=== PATIENT | male | born 1955 | race Caucasian/White ===

== ENCOUNTER 2021-08-24 16:22 | Emergency (ER) | payer MEDICARE ==
[~2021-08-24 16:22] MED LIST: CARAFATE1 GM PO; NORVASC2.5 MG PO; OMEPRAZOLE DR40 MG PO; PERCOCET 5/325M1 TAB PO; VALIUM5 MG PO
[2021-08-25] MEDS ORDERED: TAMSULOSIN HCL0.4 MG PO (15:32)
[2021-08-25] MEDS ORDERED: PROAIR HFA108 MCG/AC IN (15:32)
[2021-08-25] MEDS ORDERED: VERAPAMIL120 M1 PO (15:33)
[2021-08-25] MEDS ORDERED: VITAMI17 PO (15:35)
[2021-08-25] MEDS ORDERED: [UNRECOGNIZED DRUG - OTHER] PO (15:36)
[2021-08-25] MEDS ORDERED: LIPITOR40 M1 PO (15:36)
[2021-08-25] MEDS ORDERED: SYMBICORT1 AE1 IN (15:42)
[2021-08-25] MEDS ORDERED: EZETIMIBE10 MG PO (15:43)
[2021-08-25] MEDS ORDERED: FLONASE AL50 MCG/ACT NAB (15:44)
[2021-08-25] MEDS ORDERED: FINASTERIDE5 MG PO (15:44)
[2021-08-25] MEDS ORDERED: LISINOPRIL10 MG PO (15:45)
[2021-08-25] MEDS ORDERED: METOPROL TAR25 MG PO (15:45)
[2021-08-25] MEDS ORDERED: ZOFRAN4 MG/TAB PO (15:46)
[2021-08-25] MEDS ORDERED: GABAPENTIN100 MG PO (16:17)
[2021-08-25] MEDS ORDERED: CYCLOBENZAPRINE10 MG PO (16:18)
[2021-08-25] MEDS ORDERED: NARCAN4 MG/0.1 M (16:19)
[2021-08-25] MEDS ORDERED: VITAMIN D32000 UNI2 PO (16:59)
== END 2021-08-24 18:09 | disposition left against medical advice (07) ==
LOC: ED 16:22 → LWOBS 18:09
DX: Z53.21 Procedure and treatment not carried out due to patient leaving prior to being seen by health care provider (principal)

== ENCOUNTER 2021-08-25 14:44 | Emergency (ER) | payer MEDICARE ==
[~2021-08-25] VITALS: Ht 170.2 cm; Wt 70.0 kg
[2021-08-25] VITALS (15 sets, daily range): BP systolic 113–171; BP diastolic 63–87
[2021-08-25] MEDS ORDERED: TAMSULOSIN HCL0.4 MG PO (15:32)
[2021-08-25] MEDS ORDERED: PROAIR HFA108 MCG/AC IN (15:32)
[2021-08-25] MEDS ORDERED: VERAPAMIL120 M1 PO (15:33)
[2021-08-25] MEDS ORDERED: VITAMI17 PO (15:35)
[2021-08-25] MEDS ORDERED: LIPITOR40 M1 PO (15:36)
[2021-08-25] MEDS ORDERED: [UNRECOGNIZED DRUG - OTHER] PO (15:36)
[2021-08-25] MEDS ORDERED: SYMBICORT1 AE1 IN (15:42)
[2021-08-25 15:43] LABS: HEMATOCRIT 42.1 % (39.0-50.0); HEMOGLOBIN 14.7 g/dl (14.0-18.0); IMMATURE GRANULOCYTES 0.6 % (0.0-5.0); MEAN CORPUSCULAR HGB 31.1 pG CALC (26.0-32.0); MEAN CORPUSCULAR HGB CONC 34.9 g/dL CAL (32.0-36.0); NEUT# 3.82 thou/uL (1.82-7.42); RED BLOOD COUNT 4.73 mill/uL (4.70-6.10); RED CELL DISTRI WIDTH 12.8 % (11.5-15.5)
[2021-08-25] MEDS ORDERED: EZETIMIBE10 MG PO (15:43)
[2021-08-25] MEDS ORDERED: FLONASE AL50 MCG/ACT NAB (15:44)
[2021-08-25] MEDS ORDERED: FINASTERIDE5 MG PO (15:44)
[2021-08-25] MEDS ORDERED: LISINOPRIL10 MG PO (15:45)
[2021-08-25] MEDS ORDERED: METOPROL TAR25 MG PO (15:45)
[2021-08-25] MEDS ORDERED: ZOFRAN4 MG/TAB PO (15:46)
[2021-08-25 16:08] LABS: ALBUMIN 4.2 g/dL (3.2-5.0); ALKALINE PHOSPHATASE 89 u/l (38-126); ANION GAP 12 (6-22 (CALC)); BILIRUBIN, TOTAL 0.5 mg/dL (0.0-1.4); BUN 7 mg/dL (8-23); BUN/CREATININE RATIO 9 (12-20 (CALC)); CARBON DIOXIDE 24 mmol/l (22-30); CHLORIDE 94 mmol/l (95-108); CREATININE 0.8 mg/dL (0.7-1.3); GFR > 60 ML/MIN (>=60 (CALC)); GFR FOR AFR.AMER. > 60 ML/MIN (>=60 (CALC)); POTASSIUM 3.7 mmol/l (3.5-5.1); SGOT/AST 39 u/l (19-48); SODIUM 127 mmol/l (137-146)
[2021-08-25] MEDS ORDERED: GABAPENTIN100 MG PO (16:17)
[2021-08-25] MEDS ORDERED: CYCLOBENZAPRINE10 MG PO (16:18)
[2021-08-25] MEDS ORDERED: NARCAN4 MG/0.1 M (16:19)
[2021-08-25] MEDS ORDERED: VITAMIN D32000 UNI2 PO (16:59)
== END 2021-08-25 18:35 | disposition left against medical advice (07) ==
LOC: ED 14:44
PROVIDERS: Family Medicine
DX: R07.9 Chest pain, unspecified (principal); K92.1 Melena; I10 Essential (primary) hypertension; I25.10 Atherosclerotic heart disease of native coronary artery without angina pectoris; E78.5 Hyperlipidemia, unspecified; F17.200 Nicotine dependence, unspecified, uncomplicated; Z91.19 Patient's noncompliance with other medical treatment and regimen; Z95.820 Peripheral vascular angioplasty status with implants and grafts; Z20.822 Contact with and (suspected) exposure to COVID-19
CPT/HCPCS: Q9967